=== PATIENT | male | born 1985 | race Caucasian/White ===

== ENCOUNTER 2023-12-22 20:03 | Emergency (ER) | payer SELFPAY ==
[2023-12-22 20:05] VITALS: BP 164/97; BMI 24.2
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
[2023-12-22 21:19] VITALS: BP 152/92
== END 2023-12-22 21:22 | disposition home or self-care (01) ==
LOC: EMR 20:03
PROVIDERS: EMERGENCY PHYSICIAN Emergency Medicine
DX: S60.032A Contusion of left middle finger without damage to nail, initial encounter (principal); M79.89 Other specified soft tissue disorders; X58.XXXA Exposure to other specified factors, initial encounter; Y93.89 Activity, other specified; Z65.3 Problems related to other legal circumstances; Z02.79 Encounter for issue of other medical certificate; F17.200 Nicotine dependence, unspecified, uncomplicated
CPT/HCPCS: 99283; 73140